=== PATIENT | female | born 1965 | race Caucasian/White ===

== ENCOUNTER → 2016-11-13 | Outpatient (CLI) | payer BC | LOC: MC.RAD 09:40 | DX: Z12.31 Encounter for screening mammogram for malignant neoplasm of breast (principal) ==

== ENCOUNTER 2017-11-06 12:27 | Day surgery (SDC) | payer BC ==
[~2017-11-06] VITALS: Ht 162.6 cm; Wt 100.5 kg
[2017-11-06 12:42] VITALS: BP 148/96; PULSE 71; TEMP 97.6
[2017-11-06] MEDS ORDERED: SINGULAIR 110 MG/TAB PO (12:48)
[2017-11-06] MEDS ORDERED: CLARITIN 1010 MG/TAB PO (12:48)
[2017-11-06] MEDS ORDERED: LEXAPRO 10MG10 MG PO (12:48)
[2017-11-06] MEDS ORDERED: SPRINTEC 35 MCG1 TAB PO (12:49)
[2017-11-06] MEDS ORDERED: VITAMIN C500 MG PO (12:49)
[2017-11-06] MEDS ORDERED: MULTIPLE VITAMI1 TA5 PO (12:49)
[2017-11-06 14:54] VITALS: BP 127/72; PULSE 83
[2017-11-06 15:09] VITALS: BP 128/76; PULSE 83
[2017-11-06 15:24] VITALS: BP 118/81; PULSE 83
[2017-11-06 15:49] VITALS: BP 127/72; PULSE 81
[2017-11-06 16:46] VITALS: BP 123/74; PULSE 87
== END 2017-11-06 16:00 | disposition home or self-care (01) ==
LOC: SDCO 12:27
DX: Z12.11 Encounter for screening for malignant neoplasm of colon (principal); D12.0 Benign neoplasm of cecum; K57.30 Diverticulosis of large intestine without perforation or abscess without bleeding; F41.9 Anxiety disorder, unspecified
CPT/HCPCS: OP; J2250; J3010; J7030

== ENCOUNTER → 2017-12-03 | Outpatient (CLI) | payer BC ==
[~2017-12-03] MED LIST: CLARITIN 1010 MG/TAB PO; LEXAPRO 10MG10 MG PO; MULTIPLE VITAMI1 TA5 PO; SINGULAIR 110 MG/TAB PO; SPRINTEC 35 MCG1 TAB PO; VITAMIN C500 MG PO
== END ==
LOC: MC.RAD 08:20
DX: Z12.31 Encounter for screening mammogram for malignant neoplasm of breast (principal)

== ENCOUNTER → 2019-01-30 | Outpatient (CLI) | payer BC | LOC: MC.RAD 07:30 | DX: Z12.31 Encounter for screening mammogram for malignant neoplasm of breast (principal) ==

== ENCOUNTER 2019-02-09 07:50 | Outpatient (RCR) | payer BC ==
[2019-02-08 08:00] VITALS: BP 123/89; PULSE 74; TEMP 98.3
[~2019-02-09] VITALS: Ht 162.6 cm; Wt 101.0 kg
[2019-02-09 07:56] VITALS: BP 132/70; PULSE 85; TEMP 98.1
== END 2019-02-10 07:37 | disposition home or self-care (01) ==
LOC: EUO 07:52
DX: S61.552D Open bite of left wrist, subsequent encounter (principal); L08.9 Local infection of the skin and subcutaneous tissue, unspecified; W55.01XD Bitten by cat, subsequent encounter
CPT/HCPCS: J0696

== ENCOUNTER 2019-02-16 08:00 | Outpatient (RCR) | payer BC ==
[2019-02-15 07:55] VITALS: BP 136/81; PULSE 85; TEMP 98.2
[2019-02-16 08:00] VITALS: BP 132/82; PULSE 83; TEMP 98.1
== END 2019-02-16 08:30 | disposition home health service (06) ==
LOC: EUO 08:00
DX: S61.552D Open bite of left wrist, subsequent encounter (principal); L08.9 Local infection of the skin and subcutaneous tissue, unspecified; W55.01XD Bitten by cat, subsequent encounter
CPT/HCPCS: J0696

== ENCOUNTER → 2020-03-22 | Outpatient (CLI) | payer BC | LOC: MC.RAD 02-05 08:00 | DX: Z12.31 Encounter for screening mammogram for malignant neoplasm of breast (principal) ==

== ENCOUNTER → 2021-08-17 | Outpatient (CLI) | payer BC | LOC: MC.RAD 10:15 | DX: Z12.31 Encounter for screening mammogram for malignant neoplasm of breast (principal) ==

== ENCOUNTER → 2023-11-06 | Outpatient (CLI) | payer BC | LOC: MC.RAD 13:15 | DX: Z12.31 Encounter for screening mammogram for malignant neoplasm of breast (principal) ==